=== PATIENT | female | born 1990 | race Caucasian/White ===

== ENCOUNTER 2017-10-30 08:10 | Inpatient (IN) | payer OTHER ==
[2017-10-30] MEDS ORDERED: METHYLERGONOVINE 0.2 MG INJ IM (09:30)
[2017-10-30] MEDS ORDERED: MISOPROSTOL 200 MCG TAB PR (09:30)
[2017-10-30] MEDS ORDERED: OXYTOCIN 30 UNITS/LR 500 ML IV ×2 (09:30)
[2017-10-30] MEDS ORDERED: CARBOPROST 250 MCG INJ IM (09:30)
[2017-10-30] MEDS ORDERED: IBUPROFEN 600 MG TAB PO (09:30)
[2017-10-30 09:40] LABS: ADD MAN DIFF? NO
[2017-10-30 09:43] LABS: WHITE BLOOD COUNT 7.3 10^3/ul (4.8-10.8)
[2017-10-30 09:43] LABS: BASOPHILS % 0.4 % (0.0-2.0); EOSINOPHILS # 0.2 10^3/ul (0.0-0.5); EOSINOPHILS % 2.9 % (0.0-7.0); HEMATOCRIT 38.1 % (37.0-47.0); HEMOGLOBIN 12.8 g/dl (12.0-16.0); LYMPHOCYTES # 1.5 10^3/ul (0.8-2.9); LYMPHOCYTES % 19.8 % (15.0-51.0); MEAN CORPUSCULAR HEMOGLOBIN 29.1 pg (29.0-33.0); MEAN CORPUSCULAR HGB CONC 33.6 g/dl (32.0-37.0); MEAN CORPUSCULAR VOLUME 86.6 fl (82.0-101.0); MEAN PLATELET VOLUME 11.1 fl (7.4-10.4); MONOCYTE # 0.5 10^3/ul (0.3-0.9); MONOCYTES % 6.3 % (0.0-11.0); NEUTROPHIL # 5.1 10^3/ul (1.6-7.5); NEUTROPHILS % 69.6 % (39.0-77.0); PLATELET COUNT 268 10^3/UL (140-415); RED CELL DISTRIBUTION WIDTH 14.6 % (11.5-14.5)
[2017-10-30] MEDS: LACTATED RINGER'S 1,000 ML IV ×3 (09:56→22:54)
[2017-10-30] MEDS: OXYTOCIN 30 UNITS/LR 500 ML IV (09:58)
[2017-10-30 10:13] LABS: INR 0.84; PROTIME 11.6 Sec (11.9-14.9); PT RATIO 0.9
[2017-10-30 10:14] LABS: PARTIAL THROMBOPLASTIN TIME 28.1 Sec (25.0-35.0)
[2017-10-30 22:35] LABS: RAPID PLASMA REAGIN NONREACTIVE (NR)
[2017-10-31] MEDS: OXYTOCIN 30 UNITS/LR 500 ML IV ×3 (00:07→21:40)
[2017-10-31] MEDS: LACTATED RINGER'S 1,000 ML IV ×2 (06:06→13:37)
[2017-10-31 13:58] LABS: HEPATITIS B SURFACE ANTIGEN NEGATIVE (NEGATIVE)
[2017-10-31] MEDS ORDERED: SOD CHLORIDE 0.9% 1,000 ML IV (15:00)
[2017-10-31] MEDS: BUTORPHANOL 2 MG INJ IV (18:25)
[2017-10-31] MEDS ORDERED: MINERAL OIL LIGHT 10 ML VIAL (20:12)
[2017-10-31] MEDS: LIDOCAINE 1% (MPF) 30 ML INJ INJ (21:28)
[2017-10-31] MEDS: MINERAL OIL LIGHT 10 ML VIAL TOP (21:28)
[2017-10-31] MEDS: LACTATED RINGER'S 1,000 ML IV* (23:24)
[2017-10-31] MEDS ORDERED: MISOPROSTOL 200 MCG TAB PR (23:30)
[2017-10-31] MEDS ORDERED: WITCH HAZEL/GLYCERIN PAD PR (23:30)
[2017-10-31] MEDS ORDERED: HYDROCODONE/APAP (5/325) TAB PO (23:30)
[2017-10-31] MEDS ORDERED: LANOLIN 7 GM TUBE TOP (23:30)
[2017-10-31] MEDS ORDERED: METHYLERGONOVINE 0.2 MG INJ IM (23:30)
[2017-10-31] MEDS ORDERED: BENZOCAINE 20% 56 ML SPRAY TOP (23:30)
[2017-10-31] MEDS ORDERED: CARBOPROST 250 MCG INJ IM (23:30)
[2017-10-31] MEDS ORDERED: OXYTOCIN 30 UNITS/LR 500 ML IV (23:30)
[2017-10-31] MEDS ORDERED: ZOLPIDEM 5 MG TAB PO (23:30)
[2017-10-31] MEDS ORDERED: DIBUCAINE 1% 30 GM OINT PR (23:30)
[2017-11-01] MEDS: IBUPROFEN 600 MG TAB PO ×5 (00:14→23:44)
[2017-11-01] MEDS: LACTATED RINGER'S 1,000 ML IV* (07:24)
[2017-11-01] MEDS: SENNA/DOCUSATE NA (8.6MG/50MG) TAB PO ×2 (08:46→21:10)
[2017-11-01] MEDS: MAGNESIUM HYDROXIDE 30ML CUP PO ×2 (08:46→21:10)
[2017-11-01 10:32] LABS: ADD MAN DIFF? NO
[2017-11-01 10:49] LABS: BASOPHILS % 0.2 % (0.0-2.0); EOSINOPHILS % 0.2 % (0.0-7.0); HEMATOCRIT 36.7 % (37.0-47.0); HEMOGLOBIN 12.4 g/dl (12.0-16.0); LYMPHOCYTES # 1.7 10^3/ul (0.8-2.9); LYMPHOCYTES % 12.8 % (15.0-51.0); MEAN CORPUSCULAR HEMOGLOBIN 29.6 pg (29.0-33.0); MEAN CORPUSCULAR HGB CONC 33.8 g/dl (32.0-37.0); MEAN CORPUSCULAR VOLUME 87.6 fl (82.0-101.0); MEAN PLATELET VOLUME 10.9 fl (7.4-10.4); MONOCYTE # 0.8 10^3/ul (0.3-0.9); NEUTROPHIL # 10.4 10^3/ul (1.6-7.5); NEUTROPHILS % 80.1 % (39.0-77.0); PLATELET COUNT 262 10^3/UL (140-415); RED BLOOD COUNT 4.19 10^6/ul (4.20-5.40); RED CELL DISTRIBUTION WIDTH 14.4 % (11.5-14.5)
[2017-11-01 10:49] LABS: WHITE BLOOD COUNT 12.9 10^3/ul (4.8-10.8)
[2017-11-01] MEDS: HYDROCODONE/APAP (5/325) TAB PO (15:04)
[2017-11-02] MEDS: IBUPROFEN 600 MG TAB PO ×3 (05:41→17:43)
[2017-11-02] MEDS: DIPHTH/TET/ACEL PERTUSS (ADULT) 0.5 ML VIAL IM* (07:49)
[2017-11-02] MEDS: MEASLES,MUMPS,RUBELLA VACCINE INJ SC* (07:50)
[2017-11-02] MEDS: VARICELLA VACCINE LIVE/PF 1,350 UNIT/0.5 ML ML SC* (07:50)
[2017-11-02] MEDS: SENNA/DOCUSATE NA (8.6MG/50MG) TAB PO (08:39)
[2017-11-02] MEDS: MAGNESIUM HYDROXIDE 30ML CUP PO (08:39)
[2017-11-02 09:27] LABS: ADD MAN DIFF? NO
[2017-11-02 09:30] LABS: WHITE BLOOD COUNT 9.5 10^3/ul (4.8-10.8)
[2017-11-02 09:30] LABS: BASOPHIL # 0.1 10^3/ul (0.0-0.1); BASOPHILS % 0.5 % (0.0-2.0); EOSINOPHILS # 0.2 10^3/ul (0.0-0.5); EOSINOPHILS % 1.6 % (0.0-7.0); HEMATOCRIT 35.1 % (37.0-47.0); HEMOGLOBIN 11.5 g/dl (12.0-16.0); LYMPHOCYTES # 1.9 10^3/ul (0.8-2.9); MEAN CORPUSCULAR HEMOGLOBIN 29.3 pg (29.0-33.0); MEAN CORPUSCULAR HGB CONC 32.8 g/dl (32.0-37.0); MEAN CORPUSCULAR VOLUME 89.3 fl (82.0-101.0); MEAN PLATELET VOLUME 11.1 fl (7.4-10.4); MONOCYTE # 0.5 10^3/ul (0.3-0.9); MONOCYTES % 5.5 % (0.0-11.0); NEUTROPHIL # 6.8 10^3/ul (1.6-7.5); NEUTROPHILS % 71.6 % (39.0-77.0); PLATELET COUNT 241 10^3/UL (140-415); RED BLOOD COUNT 3.93 10^6/ul (4.20-5.40); RED CELL DISTRIBUTION WIDTH 14.8 % (11.5-14.5)
[2017-11-03] MEDS ORDERED: INFLUENZA VIRUS VACCINE 0.5 ML (DISPENSING) IM* (09:00)
== END 2017-11-02 18:19 | disposition home or self-care (01) | DRG 775 ==
LOC: L-D 08:10 → PP1 10-31 23:24
PROVIDERS: Obstetrics & Gynecology
PROC: 10E0XZZ Delivery of Products of Conception, External Approach (ICD-10-PCS; principal; 2017-10-31)
PROC: 0HQ9XZZ Repair Perineum Skin, External Approach (ICD-10-PCS; 2017-10-31)
PROC: 3E033VJ Introduction of Other Hormone into Peripheral Vein, Percutaneous Approach (ICD-10-PCS; 2017-10-31)
DX: O70.0 First degree perineal laceration during delivery (principal); O69.81X0 Labor and delivery complicated by cord around neck, without compression, not applicable or unspecified; Z3A.39 39 weeks gestation of pregnancy; Z37.0 Single live birth
CPT/HCPCS: 85025; 85610; 85730; 86592; 86900; 86901; 87340; 90715; 90716; 99464